=== PATIENT | male | born 1950 | race Caucasian/White ===

== ENCOUNTER → 2017-12-25 08:19 | Outpatient (CLI) | payer MEDICARE, OTHER, SELFPAY ==
[2017-12-25 09:49] LABS: Creatinine Urine Random 156.4 mg/dL
[2017-12-25 09:54] LABS: Microalbumi Creatinin Ratio Ur 28.1 ug/mg CR (<30); Microalbumin Urine Random 4.4 mg/dL (0-1.6)
[2017-12-25 10:00] LABS: BUN Creatinine Ratio 13.3 (6-22); Blood Urea Nitrogen 12 mg/dL (9-20); Calcium 9.8 mg/dL (8.4-10.2); Carbon Dioxide 29 mmol/L (22-32); Chloride 103 mmol/L (98-107); Cholesterol 180 mg/dL (140-199); Estimated Glomerular Filt Rate > 60.0 mL/min (>60); Glucose 138 mg/dL (80-110); HDL Cholesterol 38 mg/dL (40-60); HEMOLYSIS < 15 (0-50); LDL Cholesterol Calculated 108 mg/dL (<100); Potassium 4.6 mmol/L (3.4-5.1); Sodium 145 mmol/L (137-145); Triglycerides 171 mg/dL (35-150)
== END ==
PROVIDERS: Family Provider Family Medicine; PCP Family Medicine; Visit Provider Family Medicine
DX: E78.2 Mixed hyperlipidemia (principal); I10 Essential (primary) hypertension; R73.02 Impaired glucose tolerance (oral)
CPT/HCPCS: 36415; 80048; 80061; 82043; 82570

== ENCOUNTER → 2018-05-14 09:20 | Outpatient (CLI) | payer MEDICARE, OTHER, SELFPAY ==
[2018-05-14 11:54] LABS: Thyroid Stimulating Hormone 3.07 uIU/mL (0.47-4.68)
== END ==
PROVIDERS: PCP Family Medicine; Visit Provider Family Medicine
DX: E03.9 Hypothyroidism, unspecified (principal)
CPT/HCPCS: 36415; 84443

== ENCOUNTER → 2018-12-03 09:29 | Outpatient (CLI) | payer MEDICARE, OTHER, SELFPAY | PROVIDERS: PCP Family Medicine; Visit Provider Family Medicine | DX: R73.03 Prediabetes (principal) | CPT/HCPCS: 36415; 83036 ==

== ENCOUNTER → 2019-02-04 11:44 | Outpatient (CLI) | payer MEDICARE, OTHER, SELFPAY ==
--- NOTE | 2019-02-04 11:46 | DI.US.S_ITS ---
PROCEDURE: US SCROTUM INDICATIONS: RIGHT SCROTAL MASS, POSSIBEL ABSCESS TECHNIQUE: Real-time scanning was performed of the scrotum and testicles, with image documentation. Color and pulse Doppler interrogation was performed of both testicles. COMPARISON: None. FINDINGS: Right: Testicle is normal in size at 4.0 x 2.2 x 2.9 cm, and homogenous in echotexture. Multiple calcifications present, largest measuring 3 mm. Epididymis is not well seen.. No hydrocele or varicoceles. Scrotal wall is thickened and edematous. Small hypoechoic area measuring 5 mm involving the skin surface of the scrotal wall which may represent focal edema Left: Testicle is normal in size at 4.4 x 2.4 x 2.6 cm, and homogeneous in echotexture. Multiple microcalcifications. Epididymis is not well seen.. No hydrocele or varicoceles. Scrotal wall is thickened and edematous.. Doppler: Color and pulse Doppler demonstrate normal and symmetric arterial flow in both testicles. 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 In the absence of any other risk factors for testicular cancer(personal history of testicular cancer, a father or brother with testicular cancer, history of cryptorchidism or maldescent, etc.), no further imaging or biochemical followup is necessary. All that is recommended is routine monthly testicular self examination. ([place] Journal of Roentgenology; 206: July 2015) Diffuse scrotal wall thickening with focal hypoechoic region involving the skin surface on the right which may represent focal edema. Recommend clinical correlation to exclude cellulitis. Epididymis is not well-seen bilaterally. Dictated by: Tod KAUFMAN Interpreted: Steven Herman MD on 02/04/2019 at 16:23 Approved by: Eugene Go M.D. on 02/09/2019 at 11:08
== END ==
PROVIDERS: PCP Family Medicine; Visit Provider Family Medicine
DX: N50.89 Other specified disorders of the male genital organs (principal)
CPT/HCPCS: 76870

== ENCOUNTER → 2019-09-27 09:03 | Outpatient (CLI) | payer MEDICARE, OTHER, SELFPAY ==
[2019-09-27 11:12] LABS: BUN Creatinine Ratio 13.8 (6-22); Blood Urea Nitrogen 11 mg/dL (9-20); Carbon Dioxide 26 mmol/L (22-32); Chloride 103 mmol/L (98-107); Cholesterol 181 mg/dL (140-199); Estimated Glomerular Filt Rate > 60.0 mL/min (>60); Glucose 110 mg/dL (80-110); HDL Cholesterol 39 mg/dL (40-60); HEMOLYSIS < 15 (0-50); LDL Cholesterol Calculated 119 mg/dL (<100); Potassium 4.1 mmol/L (3.4-5.1); Sodium 139 mmol/L (137-145); Triglycerides 115 mg/dL (35-150)
[2019-09-27 11:40] LABS: Thyroid Stimulating Hormone 2.54 uIU/mL (0.47-4.68)
== END ==
PROVIDERS: PCP Family Medicine; Referring Provider Family Medicine; Visit Provider Family Medicine
DX: I10 Essential (primary) hypertension (principal); E78.2 Mixed hyperlipidemia; E03.9 Hypothyroidism, unspecified
CPT/HCPCS: 36415; 80048; 80061; 84443

== ENCOUNTER → 2020-10-15 08:30 | Outpatient (CLI) | payer MEDICARE, OTHER, SELFPAY ==
[2020-10-15 10:32] LABS: Add Manual Diff / Slide Review NO; Basophils Absolute Auto 0 /uL (0-100); Basophils Percent Auto 0.4 % (0-2); Eosinophils Absolute Auto 200 /uL (0-450); Hematocrit 45.2 % (41-53); Hemoglobin 15.3 g/dL (13.5-17.5); Lymphocytes Absolute Auto 600 /uL (1100-4500); Lymphocytes Percent Auto 15.6 % (25-40); Mean Corpuscular HGB Conc 33.7 % (30-36); Mean Corpuscular Hemoglobin 32.6 PG (26-34); Mean Corpuscular Volume 96.6 fL (80-100); Monocytes Absolute Auto 500 /uL (0-900); Monocytes Percent Auto 11.3 % (3-14); Neutrophils Absolute Auto 2800 /uL (1500-7000); Neutrophils Percent Auto 68.7 % (50-75); Platelet Count 157 X10^3/uL (150-400); Red Blood Cell Count 4.68 X10^6/uL (4.5-5.9); Red Cell Distribution Width 12.6 % (11.6-14.8)
[2020-10-15 11:48] LABS: Alanine Aminotransferase 38 IU/L (<50); Albumin 4.4 g/dL (3.5-5.0); Albumin Globulin Ratio 1.4 (1.0-2.8); Alkaline Phosphatase 52 U/L (38-126); Aspartate Aminotransferase 32 IU/L (17-59); BUN Creatinine Ratio 16.9 (6-22); Bilirubin Total 0.8 mg/dL (0.2-1.3); Blood Urea Nitrogen 15 mg/dL (9-20); Calcium 9.4 mg/dL (8.4-10.2); Carbon Dioxide 27 mmol/L (22-32); Chloride 103 mmol/L (98-107); Cholesterol 196 mg/dL (140-199); Estimated Glomerular Filt Rate > 60.0 mL/min (>60); Globulin 3.2 g/dL (1.7-4.1); Glucose 130 mg/dL (80-110); HDL Cholesterol 40 mg/dL (40-60); HEMOLYSIS < 15 (0-50); LDL Cholesterol Calculated 132 mg/dL (<100); Potassium 4.2 mmol/L (3.4-5.1); Sodium 138 mmol/L (137-145); Total Protein 7.6 g/dL (6.3-8.2); Triglycerides 121 mg/dL (35-150)
[2020-10-15 12:12] LABS: TSH w/ Reflex to FT4 1.16 uIU/mL (0.47-4.68)
[2020-10-15 12:13] LABS: Prostate Specific Antigen Scrn < 0.064 ng/mL (0.1-4.0)
== END ==
PROVIDERS: PCP Family Medicine; Referring Provider Family Medicine; Visit Provider Family Medicine
DX: E78.2 Mixed hyperlipidemia (principal); I10 Essential (primary) hypertension; Z12.5 Encounter for screening for malignant neoplasm of prostate; E89.0 Postprocedural hypothyroidism; R73.03 Prediabetes; K57.30 Diverticulosis of large intestine without perforation or abscess without bleeding
CPT/HCPCS: 36415; 80053; 80061; 84443; 85025; G0103

== ENCOUNTER → 2021-11-08 08:31 | Outpatient (CLI) | payer MEDICARE, OTHER, SELFPAY ==
[2021-11-08 10:03] LABS: Add Manual Diff / Slide Review NO; Basophils Absolute Auto 0 /uL (0-100); Basophils Percent Auto 0.3 % (0-2); Eosinophils Absolute Auto 100 /uL (0-450); Eosinophils Percent Auto 2.8 % (2-4); Hematocrit 43.9 % (41-53); Hemoglobin 15.3 g/dL (13.5-17.5); Lymphocytes Absolute Auto 700 /uL (1100-4500); Lymphocytes Percent Auto 16.4 % (25-40); Mean Corpuscular HGB Conc 34.9 % (30-36); Mean Corpuscular Hemoglobin 33.1 PG (26-34); Mean Corpuscular Volume 95.1 fL (80-100); Monocytes Absolute Auto 500 /uL (0-900); Monocytes Percent Auto 10.4 % (3-14); Neutrophils Absolute Auto 3200 /uL (1500-7000); Neutrophils Percent Auto 70.1 % (50-75); Platelet Count 143 X10^3/uL (150-400); Red Blood Cell Count 4.62 X10^6/uL (4.5-5.9); Red Cell Distribution Width 12.9 % (11.6-14.8); White Blood Cell Count 4.5 X10^3/uL (4.5-11.0)
[2021-11-08 10:19] LABS: Hemoglobin A1C% w Est Avg Glu 6.3 % (4.0-6.0)
[2021-11-08 10:43] LABS: Alanine Aminotransferase 47 IU/L (<50); Albumin 4.5 g/dL (3.5-5.0); Albumin Globulin Ratio 1.5 (1.0-2.8); Alkaline Phosphatase 59 U/L (38-126); Aspartate Aminotransferase 33 IU/L (17-59); BUN Creatinine Ratio 16.5 (6-22); Bilirubin Total 0.9 mg/dL (0.2-1.3); Blood Urea Nitrogen 14 mg/dL (9-20); Calcium 9.4 mg/dL (8.4-10.2); Carbon Dioxide 26 mmol/L (22-32); Chloride 100 mmol/L (98-107); Cholesterol 163 mg/dL (140-199); Estimated Glomerular Filt Rate > 60 mL/min (>60); Globulin 3.1 g/dL (1.7-4.1); Glucose 113 mg/dL (80-110); HDL Cholesterol 36 mg/dL (40-60); HEMOLYSIS < 15 (0-50); LDL Cholesterol Calculated 108 mg/dL (<100); Potassium 4.1 mmol/L (3.4-5.1); Sodium 141 mmol/L (137-145); Total Protein 7.6 g/dL (6.3-8.2); Triglycerides 97 mg/dL (35-150)
[2021-11-08 10:45] LABS: Creatinine Urine Random 19.2 mg/dL
[2021-11-08 10:47] LABS: Microalbumi Creatinin Ratio Ur 234.3 ug/mg CR (<30); Microalbumin Urine Random 4.5 mg/dL (0-1.6)
[2021-11-08 11:09] LABS: TSH w/ Reflex to FT4 1.62 uIU/mL (0.47-4.68)
[2021-11-08 11:11] LABS: Prostate Specific Antigen 0.232 ng/mL (0.10-4.00)
== END ==
PROVIDERS: PCP Family Medicine; Referring Provider Family Medicine; Visit Provider Family Medicine
DX: E78.2 Mixed hyperlipidemia (principal); R73.03 Prediabetes; E89.0 Postprocedural hypothyroidism; Z85.46 Personal history of malignant neoplasm of prostate; I10 Essential (primary) hypertension
CPT/HCPCS: 36415; 80053; 80061; 82043; 82570; 83036; 84153; 84443; 85025

== ENCOUNTER → 2022-05-13 09:19 | Outpatient (CLI) | payer MEDICARE, OTHER, SELFPAY ==
[2022-05-13 10:16] LABS: Hemoglobin A1C% w Est Avg Glu 9.2 % (4.0-6.0)
[2022-05-13 10:45] LABS: Alanine Aminotransferase 33 IU/L (<50); Albumin 4.5 g/dL (3.5-5.0); Albumin Globulin Ratio 1.6 (1.0-2.8); Alkaline Phosphatase 46 U/L (38-126); Aspartate Aminotransferase 27 IU/L (17-59); BUN Creatinine Ratio 17.9 (6-22); Bilirubin Total 0.5 mg/dL (0.2-1.3); Blood Urea Nitrogen 12 mg/dL (9-20); Calcium 9.2 mg/dL (8.4-10.2); Carbon Dioxide 26 mmol/L (22-32); Chloride 103 mmol/L (98-107); Estimated Glomerular Filt Rate > 60 mL/min (>60); Globulin 2.8 g/dL (1.7-4.1); Glucose 131 mg/dL (80-110); HEMOLYSIS < 15 (0-50); Potassium 3.9 mmol/L (3.4-5.1); Sodium 138 mmol/L (137-145); Total Protein 7.3 g/dL (6.3-8.2)
== END ==
PROVIDERS: PCP Family Medicine; Referring Provider Physician Assistant; Visit Provider Physician Assistant
DX: E11.65 Type 2 diabetes mellitus with hyperglycemia (principal)
CPT/HCPCS: 36415; 80053; 83036

== ENCOUNTER → 2022-11-26 07:05 | Outpatient (CLI) | payer MEDICARE, OTHER, SELFPAY ==
[2022-11-26 08:04] LABS: Creatinine Urine Random 61.9 mg/dL
[2022-11-26 08:09] LABS: Microalbumi Creatinin Ratio Ur 56.5 ug/mg CR (<30); Microalbumin Urine Random 3.5 mg/dL (0-1.6)
[2022-11-26 08:28] LABS: Hemoglobin A1C% w Est Avg Glu 6.2 % (4.0-6.0)
[2022-11-26 08:40] LABS: Alanine Aminotransferase 35 IU/L (<50); Albumin 4.5 g/dL (3.5-5.0); Albumin Globulin Ratio 1.7 (1.0-2.8); Alkaline Phosphatase 43 U/L (38-126); Aspartate Aminotransferase 28 IU/L (17-59); BUN Creatinine Ratio 19.2 (6-22); Bilirubin Total 0.6 mg/dL (0.2-1.3); Blood Urea Nitrogen 14 mg/dL (9-20); Calcium 9.8 mg/dL (8.4-10.2); Carbon Dioxide 25 mmol/L (22-32); Chloride 104 mmol/L (98-107); Cholesterol 182 mg/dL (140-199); Estimated Glomerular Filt Rate > 60 mL/min (>60); Globulin 2.7 g/dL (1.7-4.1); Glucose 145 mg/dL (80-110); HDL Cholesterol 47 mg/dL (40-60); HEMOLYSIS < 15 (0-50); LDL Cholesterol Calculated 104 mg/dL (<100); Potassium 4.6 mmol/L (3.4-5.1); Sodium 138 mmol/L (137-145); Total Protein 7.2 g/dL (6.3-8.2); Triglycerides 154 mg/dL (35-150)
== END ==
PROVIDERS: PCP Family Medicine; Referring Provider Family Medicine; Visit Provider Family Medicine
DX: E11.65 Type 2 diabetes mellitus with hyperglycemia (principal)
CPT/HCPCS: 36415; 80053; 80061; 82043; 82570; 83036

== ENCOUNTER → 2023-05-08 08:09 | Outpatient (CLI) | payer MEDICARE, OTHER, SELFPAY ==
[2023-05-08 08:49] LABS: Cholesterol 181 mg/dL (140-199); HDL Cholesterol 43 mg/dL (40-60); LDL Cholesterol Calculated 104 mg/dL (<100); Triglycerides 168 mg/dL (35-150)
[2023-05-08 09:55] LABS: Hemoglobin A1C% w Est Avg Glu 6.3 % (4.0-6.0)
== END ==
PROVIDERS: PCP Family Medicine; Referring Provider Family Medicine; Visit Provider Family Medicine
DX: E11.65 Type 2 diabetes mellitus with hyperglycemia (principal); E11.9 Type 2 diabetes mellitus without complications; E78.2 Mixed hyperlipidemia; I10 Essential (primary) hypertension
CPT/HCPCS: 36415; 80061; 83036

== ENCOUNTER 2023-05-18 15:46 | Emergency (ER) | payer MEDICARE, OTHER, SELFPAY ==
[2023-05-18 15:51] VITALS: BP 177/96; PULSE 86; O2SAT 97
--- NOTE | 2023-05-18 15:54 | ED_ITS ---
HPI - General Adult General Chief complaint: Hypertension Stated complaint: Hypertension Time Seen by Provider: 05/18/23 15:53 History of Present Illness HPI narrative: 73-year-old male presents with elevated blood pressure readings at home. Patient states that he has been checking his blood pressures at home and they have been elevated, which is causing him concerned. He reports systolic blood pressure is varying between 160 and 190. He states that he was longstanding anxiety and he was not certain if the hypertension is causing his anxiety or if the anxiety is making his high blood pressure worse. Patient was seen by his primary care physician on 05/11 for his elevated blood pressure. It was noted at that time that pressures were of questionable control. Per primary care note ?recommend he start checking his blood pressures more consistently at home again. At that time his blood pressure regimen was adjusted and he was discharged home. Patient denies chest pain, blurred vision, shortness of breath, leg swelling, worst headache of life, mental status changes. He reports longstanding anxiety, he states that he uses cannabis sometimes to help him, but this is not seem to be controlling his anxiety well enough anymore. Related Data Home Medications Medication Instructions Recorded Confirmed denosumab 120 mg/1.7 mL (70 mg/mL) 120 mg SUBCUT Q4W 04/17/22 05/12/23 subcutaneous solution leuprolide (3 month) 22.5 mg (3 22.5 mg IM [id number] 04/17/22 05/12/23 month) intramuscular syringe kit (Lupron Depot) vitamin B complex (B 1 tab PO DAILY 05/27/22 05/12/23 Complex-Vitamin B12 tablet) Previous Rx's Medication Instructions Recorded imipramine HCl 10 mg tablet 10 mg PO TID #270 tabs 11/04/22 amlodipine 10 mg tablet 10 mg PO DAILY #90 tabs 05/07/23 atorvastatin 40 mg tablet 40 mg PO ONCE PM #90 tabs 05/07/23 levothyroxine 125 mcg tablet 125 mcg PO DAILY #90 tabs 05/07/23 losartan 100 mg tablet 100 mg PO DAILY #90 tabs 05/07/23 metformin 500 mg tablet,extended 500 mg PO QPM #90 tabs 05/07/23 release 24hr (osmotic) Allergies Allergy/AdvReac Type Severity Reaction Status Date / Time No Known Drug Allergies Allergy Verified 05/18/23 17:35 Review of Systems Review of Systems Narrative: Negative except as noted above Patient History Medical History Prostate cancer metastatic to bone Lower urinary tract symptoms (LUTS) Urinary incontinence without sensory awareness AYSHA (stress urinary incontinence), male Hypothyroidism associated with surgical procedure Prediabetes Mixed hyperlipidemia (02/29/16) History of malignant neoplasm of prostate (02/29/16) Essential hypertension (02/29/16) Diverticulosis of large intestine without hemorrhage (02/29/16) Surgical History Anesthesia History of prostate surgery (12/12/15) History of thyroidectomy (01/12/82) Family History Father Heart disease Grandfather Cerebrovascular accident (CVA), unspecified mechanism Grandmother Peritonitis Mother Heart disease Grandfather Heart disease Grandmother Pneumonia Brother No problems noted. Sister No problems noted. Social History Smoking Status: Never smoker Smoking Status: Never smoker Exam Initial Vital Signs Initial Vital Signs: Vital Signs Pulse Rate 86 05/18/23 15:51 Blood Pressure 177/96 H 05/18/23 15:51 Pulse Oximetry 97 05/18/23 15:51 Const: Awake, alert, no acute distress, nontoxic appearing Cardiac: regular rate, regular rhythm RESP: unlabored, clear bilaterally, no wheezing GI: Soft, nontender, nondistended, no rebound, no guarding MSK: Atraumatic, full range of motion, pulses equal Skin: Warm, Dry, intact, no rashes Neuro: AO x3, CN II-XII grossly intact, moves all extremities Course Orders Ordered: ED Orders 05/18/23 15:59 EKG-12 Lead Routine 05/18/23 16:30 CBC Auto Diff [Complete Blood Count AUTO DIFF] Stat CMP [Comprehensive Metabolic Panel] Stat 05/18/23 16:35 UA Complete [Urinalysis and Microscopic] Stat Vital Signs Vital signs: Vital Signs - 8 hr 05/18/23 15:51 05/18/23 15:51 05/18/23 15:56 Temperature 98 F Pulse Rate 86 83 Respiratory Rate 12 Blood Pressure 177/96 H 165/92 H Pulse Oximetry 97 98 Oxygen Delivery Method Room Air 05/18/23 16:00 05/18/23 16:00 05/18/23 16:30 Temperature Pulse Rate 84 Respiratory Rate 30 H Blood Pressure 165/92 H 170/93 H Pulse Oximetry 97 Oxygen Delivery Method 05/18/23 16:30 05/18/23 17:00 05/18/23 17:00 Temperature Pulse Rate 78 82 Respiratory Rate 20 Blood Pressure 160/97 H Pulse Oximetry 97 97 Oxygen Delivery Method Medical Decision Making Differential Diagnosis Differential Diagnosis: Asymptomatic hypertension, anxiety, anemia Lab Data 05/18/23 16:30 05/18/23 16:30 Labs: Lab Results 05/18/23 05/18/23 Range/Units 16:30 16:35 WBC 4.7 (4.5-11.0) X10^3/uL RBC 4.28 L (4.5-5.9) X10^6/uL Hgb 13.6 (13.5-17.5) g/dL Hct 40.7 L (41-53) % MCV 94.9 (80-100) fL MCH 31.7 (26-34) PG MCHC 33.4 (30-36) % RDW 13.2 (11.6-14.8) % Plt Count 169 (150-400) X10^3/uL Neut % (Auto) 79.3 H (50-75) % Lymph % (Auto) 11.0 L (25-40) % [place] % (Auto) 7.4 (3-14) % Eos % (Auto) 2.1 (2-4) % Baso % (Auto) 0.2 (0-2) % Neut # (Auto) 3700 (5237-7331) /uL Lymph # (Auto) 500 L (7789-5728) /uL [place] # (Auto) 300 (0-900) /uL Eos # (Auto) 100 (0-450) /uL Baso # (Auto) 0 (0-100) /uL Sodium 140 (137-145) mmol/L Potassium 3.8 (3.4-5.1) mmol/L Chloride 107 (98-107) mmol/L Carbon Dioxide 23 (22-32) mmol/L BUN 13 (9-20) mg/dL Creatinine 0.79 (0.66-1.25) mg/dL Estimated GFR > 60 (>60) mL/min BUN/Creatinine Ratio 16.5 (6-22) Glucose 111 H (80-110) mg/dL Calcium 9.2 (8.4-10.2) mg/dL Total Bilirubin 0.6 (0.2-1.3) mg/dL AST 24 (17-59) IU/L ALT 19 (<50) IU/L Alkaline Phosphatase 47 (38-126) U/L Total Protein 7.9 (6.3-8.2) g/dL Albumin 4.4 (3.5-5.0) g/dL Globulin 3.5 (1.7-4.1) g/dL Albumin/Globulin Ratio 1.3 (1.0-2.8) Urine Color Yellow Urine Appearance Clear Urine pH 5.5 (4.5-8.0) Ur Specific [place] 1.025 (1.000-1.035) Urine Protein 1+ H (Negative) Urine Glucose (UA) Negative (Negative) g/dL Urine Ketones 1+ H (NEGATIVE) Urine Occult Blood Negative (Negative) Urine Nitrate Negative (Negative) Urine Bilirubin Negative (NEGATIVE) Urine Urobilinogen 0.2 (0.2) E.U./dL Ur Leukocyte Esterase Negative (NEGATIVE) Urine RBC None seen (0-5/HPF) Urine WBC 0-1/hpf (0-5/HPF) Ur Squamous Epith Cells None seen (0-5/HPF) Urine Bacteria Occasional (0-1) (None) Urine Mucus 1+ H (Negative) Ur Culture Indicated? Cult not indicated Vol Urine Centrifuged 10ml (spun) MDM Narrative Medical decision making narrative: Well-appearing patient with asymptomatic hypertension. Patient just started rechecking his blood pressures at home and in addition he states that he was longstanding anxiety that is likely contributing to his elevated blood pressure readings at home. He has no physical exam abnormalities, resting comfortably in ED bed. Laboratory work and imaging reviewed. Patient recommended to follow up with primary care physician to see if a long-term medication for his anxiety can be prescribed. In the meantime patient requests something that can help bridge him to his primary care appointment as he will not be able to get an appointment for several days to several weeks. Due to patient's age hydroxyzine or benzodiazepines to be avoided. Clonidine prescribed due to both anxiolytic and antihypertensive properties. Discharge Plan Departure Patient Disposition: Home Clinical Impression: Essential hypertension, Anxiety Instructions: DI for High Blood Pressure, DI for Anxiety -- Adult Activity Restrictions/Additional Instructions: Please follow up with Dr. Trimble for your blood pressure Prescriptions: New clonidine HCl 0.2 mg tablet 0.2 mg PO TID PRN (Reason: hypertensive emergency) Qty: 30 0RF clonidine HCl 0.2 mg tablet 0.2 mg PO TID PRN (Reason: hypertensive emergency) Qty: 30 0RF No Action Lupron Depot (3 month) 22.5 mg syringe kit 22.5 mg IM [id number] denosumab 120 mg/1.7 mL (70 mg/mL) solution 120 mg SUBCUT Q4W vitamin B complex [B Complex-Vitamin B12] Tablet 1 tab PO DAILY amlodipine 10 mg tablet 10 mg PO DAILY Qty: 90 3RF atorvastatin 40 mg tablet 40 mg PO ONCE PM Qty: 90 1RF levothyroxine 125 mcg tablet 125 mcg PO DAILY Qty: 90 0RF losartan 100 mg tablet 100 mg PO DAILY Qty: 90 1RF metformin 500 mg tablet extended release 24 hr 500 mg PO QPM Qty: 90 1RF imipramine HCl 10 mg tablet 10 mg PO TID Qty: 270 3RF Rx Instructions: Take from 1, up to 4 tablets by mouth every 8 hours as needed and as directed as needed. Referrals: Gail Trimble MD [Primary Care Provider] - Stand Alone Forms: Patient Portal/API
[2023-05-18 15:56] VITALS: BP 165/92; PULSE 83; RESP 12; TEMP 36.6; O2SAT 98; BMI 28.5
[2023-05-18 16:00] VITALS: BP 165/92; PULSE 84; RESP 30; O2SAT 97
[2023-05-18 16:30] VITALS: BP 170/93; PULSE 78; RESP 20; O2SAT 97
[2023-05-18 16:49] LABS: Appearance Urine UA CLEAR; Bilirubin Urine UA NEGATIVE (NEGATIVE); Color Urine UA YELLOW; Glucose Urine UA NEGATIVE (Negative); Ketones Urine UA 1+ (NEGATIVE); Leukocyte Esterase Urine UA NEGATIVE (NEGATIVE); Nitrite Urine UA NEGATIVE (Negative); Occult Blood Urine UA NEGATIVE (Negative); Protein Urine UA 1+ (Negative); Specific Gravity Urine UA 1.025 (1.000-1.035); Urobilinogen Urine UA 0.2 E.U./dL (0.2); pH Urine UA 5.5 (4.5-8.0)
[2023-05-18 16:55] LABS: Add Manual Diff / Slide Review NO; Basophils Absolute Auto 0 /uL (0-100); Basophils Percent Auto 0.2 % (0-2); Eosinophils Absolute Auto 100 /uL (0-450); Eosinophils Percent Auto 2.1 % (2-4); Hematocrit 40.7 % (41-53); Hemoglobin 13.6 g/dL (13.5-17.5); Lymphocytes Absolute Auto 500 /uL (1100-4500); Mean Corpuscular HGB Conc 33.4 % (30-36); Mean Corpuscular Hemoglobin 31.7 PG (26-34); Mean Corpuscular Volume 94.9 fL (80-100); Monocytes Absolute Auto 300 /uL (0-900); Monocytes Percent Auto 7.4 % (3-14); Neutrophils Absolute Auto 3700 /uL (1500-7000); Neutrophils Percent Auto 79.3 % (50-75); Platelet Count 169 X10^3/uL (150-400); Red Blood Cell Count 4.28 X10^6/uL (4.5-5.9); Red Cell Distribution Width 13.2 % (11.6-14.8); White Blood Cell Count 4.7 X10^3/uL (4.5-11.0)
[2023-05-18 16:56] LABS: Alanine Aminotransferase 19 IU/L (<50); Albumin 4.4 g/dL (3.5-5.0); Albumin Globulin Ratio 1.3 (1.0-2.8); Alkaline Phosphatase 47 U/L (38-126); Aspartate Aminotransferase 24 IU/L (17-59); BUN Creatinine Ratio 16.5 (6-22); Bilirubin Total 0.6 mg/dL (0.2-1.3); Blood Urea Nitrogen 13 mg/dL (9-20); Calcium 9.2 mg/dL (8.4-10.2); Carbon Dioxide 23 mmol/L (22-32); Chloride 107 mmol/L (98-107); Estimated Glomerular Filt Rate > 60 mL/min (>60); Globulin 3.5 g/dL (1.7-4.1); Glucose 111 mg/dL (80-110); HEMOLYSIS < 15 (0-50); Potassium 3.8 mmol/L (3.4-5.1); Sodium 140 mmol/L (137-145); Total Protein 7.9 g/dL (6.3-8.2)
[2023-05-18 16:59] LABS: Bacteria Urine Occasional (0-1); Culture Indicated Urine Cult Not Indicated; Mucus Urine 1+ (Negative); RBC Urine None Seen (0-5/HPF); Squamous Epithelial Cell Urine None Seen (0-5/HPF); Urine Volume 10mL (spun); WBC Urine 0-1/HPF (0-5/HPF)
[2023-05-18 17:00] VITALS: BP 160/97; PULSE 82; O2SAT 97
--- NOTE | 2023-05-18 17:38 | PC.NURSE ---
Clonidine prescription called into [facility].
== END 2023-05-18 17:35 | disposition home or self-care (01) ==
PROVIDERS: Emergency Provider Emergency Medicine; PCP Family Medicine
DX: I10 Essential (primary) hypertension (principal); F41.9 Anxiety disorder, unspecified
CPT/HCPCS: 36415; 80053; 81001; 85025; 93005; 99283; 99284

== ENCOUNTER → 2023-12-09 10:21 | Outpatient (CLI) | payer MEDICARE, OTHER, SELFPAY ==
[2023-12-09 15:26] LABS: Creatinine Urine Random 134.68 mg/dL
[2023-12-09 15:33] LABS: Microalbumin Urine Random 3.2 mg/dL (0-1.6)
== END ==
PROVIDERS: PCP Family Medicine; Visit Provider Family Medicine
DX: E11.9 Type 2 diabetes mellitus without complications (principal)
CPT/HCPCS: 82043; 82570

== ENCOUNTER → 2024-12-13 08:54 | Outpatient (CLI) | payer MEDICARE, OTHER, SELFPAY ==
[2024-12-13 14:55] LABS: TSH w/ Reflex to FT4 3.41 uIU/mL (0.47-4.68)
== END ==
PROVIDERS: PCP Family Medicine; Referring Provider Family Medicine; Visit Provider Family Medicine
DX: E89.0 Postprocedural hypothyroidism (principal)
CPT/HCPCS: 36415; 84443